=== PATIENT | female | born 1960 | race Caucasian/White ===

== ENCOUNTER 2019-05-02 08:31 | Outpatient (CLI) | payer OTHER | END 2019-05-02 23:59 | disposition home or self-care (01) | LOC: CFH 08:31 | PROVIDERS: ATTEND Nurse Practitioner Primary Care | DX: Z12.31 Encounter for screening mammogram for malignant neoplasm of breast (principal); N64.89 Other specified disorders of breast; Z87.891 Personal history of nicotine dependence | CPT/HCPCS: 77063; 77067 ==